=== PATIENT | male | born 1975 | race Two or more races ===

== ENCOUNTER 2022-02-15 03:42 | Emergency (ER) | payer OTHER ==
[~2022-02-15] VITALS: Ht 157.5 cm; Wt 56.7 kg
[2022-02-15] MEDS ORDERED: DICLOFENAC SODI50 MG PO (09:35)
[2022-02-15] MEDS ORDERED: PEPCID AC20 MG PO (09:35)
[2022-02-15] MEDS ORDERED: AZITHROMYCIN500 MG PO (09:35)
[2022-02-15] MEDS ORDERED: INTESTINEX680 M1 PO (09:35)
[2022-02-15] MEDS ORDERED: CLINDAMYCIN HC300 MG PO (09:35)
== END 2022-02-15 10:02 | disposition home or self-care (01) ==
LOC: ER 03:42 → EDBD 05:07 → ER 10:02
DX: J03.90 Acute tonsillitis, unspecified (principal); A49.3 Mycoplasma infection, unspecified site; R59.9 Enlarged lymph nodes, unspecified; Z20.822 Contact with and (suspected) exposure to COVID-19; Z88.0 Allergy status to penicillin